=== PATIENT | female | born 1970 | race Two or more races ===

== ENCOUNTER 2023-01-13 03:43 | Emergency (ER) | payer OTHER ==
[~2023-01-13] VITALS: Ht 157.5 cm; Wt 93.0 kg
[2023-01-13] MEDS ORDERED: SYNTHROID175 MCG PO (04:02)
[2023-01-13] MEDS ORDERED: CVS CALCIUM 601 EAC5 (04:02)
[2023-01-13] MEDS ORDERED: PANTOPRAZOLE SO40 MG PO (04:03)
[2023-01-13] MEDS ORDERED: NABUMETONE750 MG PO (05:43)
[2023-01-13] MEDS ORDERED: ORPHENADRINE C100 MG PO (05:43)
== END 2023-01-13 05:50 ==
LOC: ER 03:43
DX: M62.838 Other muscle spasm (principal); M25.512 Pain in left shoulder; E03.8 Other specified hypothyroidism

== ENCOUNTER 2024-10-11 08:15 | Inpatient (IN) | payer OTHER ==
[~2024-10-11] VITALS: Ht 61 cm; Wt 88.5 kg
[~2024-10-11 08:15] MED LIST: CVS CALCIUM 601 EAC5; NABUMETONE750 MG PO; ORPHENADRINE C100 MG PO; PANTOPRAZOLE SO40 MG PO; SYNTHROID175 MCG PO
[2024-10-11] MEDS ORDERED: TOPROL XL25 M1 PO (09:32)
[2024-10-25] MEDS ORDERED: METRONIDAZOLE/SODIUM CHLORIDE 500 MG/100 ML PIGGYBACK IV ONE (13:30)
[2024-10-25] MEDS ORDERED: CEFTRIAXONE SODIUM 2,000 MG VIAL IV ONE (13:30)
[2024-10-25] MEDS ORDERED: MORPHINE SULFATE 4 MG/ML CARTRIDGE IV PRN (14:45)
[2024-10-25] MEDS ORDERED: OxyCODONE HCL 5 MG TABLET (ROXICODONE) PO PRN (14:45)
[2024-10-25] MEDS ORDERED: ONDANSETRON HCL 2 MG/ML VIAL IV PRN (14:45)
[2024-10-25] MEDS ORDERED: 0.9 % SODIUM CHLORIDE 1,000 ML IV SCH (14:45)
[2024-10-25] MEDS ORDERED: DEXTROSE 50 % IN WATER 0.5 G/ML DISP.SYRIN IV PRN (14:45)
[2024-10-25] MEDS ORDERED: MORPHINE SULFATE 4 MG/ML VIAL IV ONE ×2 (15:10→15:40)
[2024-10-25] MEDS ORDERED: ENALAPRILAT DIHYDRATE 1.25 MG/ML VIAL IV PRN (15:30)
[2024-10-25 16:32] LABS: HEMATOCRIT 41.1 % (36.0-45.00); HEMOGLOBIN 13.4 g/dL (12.0-15.00); MEAN CELL VOLUME 89.6 fL (80.00-100.00); MEAN CORPUSCULAR HEMOGLOBIN 29.3 pg (27.00-32.0); MEAN CORPUSCULAR HGB CONC 32.7 g/dl (32.0-36.0); PLATELET COUNT 268 K/uL (150-450); RED BLOOD COUNT 4.58 M/uL (4.00-6.00); RED CELL DISTRIBUTION WIDTH 13.7 % (11.5-14.5)
[2024-10-25] MEDS ORDERED: GABAPENTIN 300 MG CAPSULE PO SCH (17:00)
[2024-10-25] MEDS ORDERED: HYOSCYAMINE SULFATE 0.125 MG TAB.SUBL SL SCH (17:00)
[2024-10-25] MEDS ORDERED: POLYETHYLENE GLYCOL 3350 17 GM BLIST.PACK PO SCH (17:00)
[2024-10-25] MEDS ORDERED: METRONIDAZOLE/SODIUM CHLORIDE 500 MG/100 ML PIGGYBACK IV SCH (17:00)
[2024-10-25 17:20] LABS: ALBUMIN 3.4 gm/dL (3.4-5.0); CALCIUM 8.6 mg/dL (8.5-10.1); CREATININE SERUM 0.67 mg/dL (0.55-1.02); GFR 91.72; MAGNESIUM 1.8 mg/dL (1.8-2.4); PHOSPHOROUS 3.7 mg/dL (2.5-4.9); POTASSIUM 4.4 mEq/L (3.5-5.1)
[2024-10-25 19:06] VITALS: BP 121/70; O2SAT 94
[2024-10-25] MEDS ORDERED: ACETAMINOPHEN 500 MG GEL..CAP PO SCH (20:00)
[2024-10-25] MEDS ORDERED: CELECOXIB 200 MG CAPSULE PO SCH (21:00)
[2024-10-25] MEDS ORDERED: FAMOTIDINE/PF 20 MG/2 ML VIAL IV PUSH SCH (21:00)
[2024-10-26 00:30] VITALS: BP 131/78; O2SAT 99
[2024-10-26] MEDS ORDERED: PATIENTS OWN MEDICATION (MEDICAMENTO EN PISO) PO SCH (06:00)
[2024-10-26 06:54] LABS: HEMATOCRIT 36.8 % (36.0-45.00); HEMOGLOBIN 12.5 g/dL (12.0-15.00); MEAN CELL VOLUME 87.8 fL (80.00-100.00); MEAN CORPUSCULAR HEMOGLOBIN 29.8 pg (27.00-32.0); PLATELET COUNT 242 K/uL (150-450); RED BLOOD COUNT 4.19 M/uL (4.00-6.00); RED CELL DISTRIBUTION WIDTH 13.7 % (11.5-14.5)
[2024-10-26 07:54] LABS: BLOOD UREA NITROGEN 10 mg/dL (7-18); BUN CREA RATIO 17 (7.0-25.0); CALCIUM 8.1 mg/dL (8.5-10.1); CARBON DIOXIDE 29 mEq/L (21-32); CHLORIDE 110 mmol/L (98-107); GFR 104.18; GLUCOSE FASTING 99 mg/dL (65-100); OSMOLALITY SERUM 264 MOSM/KG (275-295); PHOSPHOROUS 3.9 mg/dL (2.5-4.9); POTASSIUM 3.88 mEq/L (3.5-5.1); SODIUM 132 mmol/L (136-145)
[2024-10-26 08:59] VITALS: BP 108/62; O2SAT 95
[2024-10-26] MEDS ORDERED: METOPROLOL SUCCINATE 100 MG TAB.SR.24H PO SCH (09:00)
[2024-10-26 16:55] VITALS: BP 115/66; O2SAT 95
[2024-10-26] MEDS ORDERED: ENOXAPARIN SODIUM 40 MG/0.4 ML SYRINGE SUBCUTANEO SCH (17:00)
[2024-10-27] VITALS: BP 111/71; O2SAT 97
[2024-10-27 07:33] LABS: HEMATOCRIT 37.5 % (36.0-45.00); HEMOGLOBIN 12.7 g/dL (12.0-15.00); MEAN CELL VOLUME 88.5 fL (80.00-100.00); MEAN CORPUSCULAR HEMOGLOBIN 29.9 pg (27.00-32.0); MEAN CORPUSCULAR HGB CONC 33.7 g/dl (32.0-36.0); PLATELET COUNT 224 K/uL (150-450); RED BLOOD COUNT 4.24 M/uL (4.00-6.00); RED CELL DISTRIBUTION WIDTH 13.6 % (11.5-14.5)
[2024-10-27 07:59] LABS: CALCIUM 8.3 mg/dL (8.5-10.1); CREATININE SERUM 0.61 mg/dL (0.55-1.02); GFR 102.21; PHOSPHOROUS 2.9 mg/dL (2.5-4.9); POTASSIUM 4.43 mEq/L (3.5-5.1)
[2024-10-27 08:59] VITALS: BP 109/72; O2SAT 95
[2024-10-27] MEDS ORDERED: ENOXAPARIN SODIUM 40 MG/0.4 ML SYRINGE SUBCUTANEO SCH (09:00)
[2024-10-27] MEDS ORDERED: LACTOBACILLUS ACIDOPHILUS 1 CAP CAP PO SCH (10:56)
[2024-10-27 16:00] VITALS: BP 90/61; O2SAT 95
[2024-10-27 22:00] VITALS: BP 102/69
[2024-10-28 02:07] VITALS: BP 131/80; O2SAT 95
[2024-10-28 08:59] VITALS: BP 138/82; O2SAT 95
[2024-10-28 16:00] VITALS: BP 111/74; O2SAT 97
[2024-10-28] MEDS ORDERED: PANTOPRAZOLE SODIUM 40 MG TABLET.DR PO SCH (17:00)
[2024-10-29] VITALS: BP 109/75; O2SAT 95
[2024-10-29 06:42] LABS: HEMATOCRIT 34.8 % (36.0-45.00); HEMOGLOBIN 11.7 g/dL (12.0-15.00); MEAN CELL VOLUME 89.7 fL (80.00-100.00); MEAN CORPUSCULAR HEMOGLOBIN 30.1 pg (27.00-32.0); MEAN CORPUSCULAR HGB CONC 33.6 g/dl (32.0-36.0); PLATELET COUNT 214 K/uL (150-450); RED BLOOD COUNT 3.88 M/uL (4.00-6.00); RED CELL DISTRIBUTION WIDTH 13.4 % (11.5-14.5)
[2024-10-29 07:06] LABS: CALCIUM 8.5 mg/dL (8.5-10.1); CREATININE SERUM 0.67 mg/dL (0.55-1.02); GFR 91.72; POTASSIUM 4.24 mEq/L (3.5-5.1)
[2024-10-29 08:00] VITALS: BP 127/76; O2SAT 94
[2024-10-29] MEDS ORDERED: PEPCID AC20 MG PO (11:11)
[2024-10-29] MEDS ORDERED: HYOSCYAMINE0.125 M1 SL (11:11)
[2024-10-29] MEDS ORDERED: TRAM1TAB98 PO (11:11)
[2024-10-29] MEDS ORDERED: INTESTINEX680 M1 PO (11:11)
[2024-10-29] MEDS ORDERED: CARAFATE1 GM PO (11:12)
[2024-10-29] MEDS ORDERED: ZOFRAN8 MG PO (11:12)
== END 2024-10-29 14:44 | disposition home or self-care (01) | DRG 331 ==
LOC: SURH 10-18 08:45 → O/R 10-25 09:19 → SURH 10-25 16:23
PROVIDERS: Internal Medicine; Internal Medicine Geriatric Medicine; ADMIT Surgery; ATTEND Surgery
PROC: 0DBP4ZZ Excision of Rectum, Percutaneous Endoscopic Approach (ICD-10-PCS; 2024-10-25)
PROC: 0DJD8ZZ Inspection of Lower Intestinal Tract, Via Natural or Artificial Opening Endoscopic (ICD-10-PCS; 2024-10-25)
PROC: 0DTN4ZZ Resection of Sigmoid Colon, Percutaneous Endoscopic Approach (ICD-10-PCS; principal; 2024-10-25 13:00)
DX: K57.20 Diverticulitis of large intestine with perforation and abscess without bleeding (principal); R10.32 Left lower quadrant pain; N73.6 Female pelvic peritoneal adhesions (postinfective); N99.4 Postprocedural pelvic peritoneal adhesions